=== PATIENT | female | born 1980 | race Caucasian/White ===

== ENCOUNTER 2024-02-10 14:38 | Emergency (ER) | payer OTHER ==
[2024-02-10 15:00] VITALS: BP 126/72; PULSE 77; RESP 18; TEMP 98.2; O2SAT 98
--- NOTE | 2024-02-10 15:13 | ERPHSYRPT ---
- History of Present Illness Time Seen by Provider: 02/10/24 14:42 Source: patient Exam Limitations: no limitations Patient Subjective Stated Complaint: Wound check- wound to left foot Triage Nursing Assessment: Patient ambulated back to ED and transferred self to bed. Patient A+O X3. Patient's skin pink, warm and dry. Patient complains of wound to left foot. Patient states last she got a pedicure and the software support technician knicked her skin to left outer heel causing an area. Patient states the pain is 2/10, but worse when walking. Patient has wound to left outer foot 1cm X 1.2cm. Physician History: 44 years old up-to-date with tetanus presented in the ER with complaint of left foot wound 3 to 4 days ago when she went for pedicure with some superficial skin abrasion. Reports increasing swelling and pain around the last couple of days with some redness around as well. Hurts to ambulate. No fever or chills reported. Allergies/Adverse Reactions: levofloxacin [From Levaquin] Allergy (Verified 02/10/24 14:44) Home Medications: Escitalopram Oxalate [Lexapro] 1 tab PO DAILY 02/10/24 [History] Hx Tetanus, Diphtheria Vaccination/Date Given: Yes Hx Influenza Vaccination/Date Given: No Hx Pneumococcal Vaccination/Date Given: No Immunizations Up to Date: Yes Travel Risk - International Travel Have you traveled outside of the country in past 3 weeks: No - Emerging Infectious Disease Are you exhibiting symptoms associated with any current EIDs: No - Review of Systems Constitutional: No Symptoms Ears, Nose, & Throat: No Symptoms Respiratory: No Symptoms Cardiac: No Symptoms Abdominal/Gastrointestinal: No Symptoms Musculoskeletal: Injury Skin: Skin Lesions Neurological: No Symptoms Endocrine: No Symptoms - Past Medical History Pertinent Past Medical History: No Neurological History: No Pertinent History ENT History: No Pertinent History Cardiac History: No Pertinent History Respiratory History: No Pertinent History Endocrine Medical History: No Pertinent History Musculoskeletal History: No Pertinent History GI Medical History: No Pertinent History History: No Pertinent History Psycho-Social History: Anxiety Female Reproductive Disorders: No Pertinent History - Past Surgical History Past Surgical History: Yes Neuro Surgical History: No Pertinent History Cardiac: No Pertinent History Respiratory: No Pertinent History Gastrointestinal: No Pertinent History Genitourinary: No Pertinent History Musculoskeletal: Orthopedic Surgery Female Surgical History: Hysterectomy Other Surgical History: Right hip and knee surgery - Female History Hx Last Menstrual Period: hysterectomy Hx Now: No - Social History Smoking Status: Never smoker Exposure to second hand smoke: No Drug Use: none - Nursing Vital Signs Nursing Vital Signs: Initial Vital Signs Temperature 98.2 F 02/10/24 14:45 Pulse Rate 77 02/10/24 14:45 Respiratory Rate 18 02/10/24 14:45 Blood Pressure 126/72 02/10/24 14:45 O2 Sat by Pulse Oximetry 98 02/10/24 14:45 Pain Scale Pain Intensity 2 - Physical Exam General Appearance: no apparent distress Eye Exam: PERRL/EOMI Ears, Nose, Throat Exam: normal ENT inspection Neck Exam: normal inspection, non-tender, supple, full range of motion Respiratory Exam: normal breath sounds, lungs clear Cardiovascular Exam: regular rate/rhythm, normal heart sounds Extremity Exam: inflammation, swelling (Left foot heel lateral aspect open wound with erythema around. Minimal sloughing. Warm and mildly tender to touch.), tenderness, other Skin Exam: normal color SpO2 Interpretation: normal SpO2: 98 O2 Delivery: Room Air Ordered Tests: Active Orders 24 hr Category Date Time Status CULTURE,WOUND Stat Lab 02/10/24 Ordered - Progress Progress Note: 02/10/24 15:10 44-year-old is evaluated for left heel wound after she had a pedicure done 2 days ago with surrounding erythema. Minimal sloughing. Patient is afebrile. I would start her on Bactrim and outpatient follow-up recommended. Discussed signs symptoms of worsening needing return to ER which she seems understanding. Counseled pt/family regarding: diagnosis, need for follow-up Medical Desision Making - Diagnostic Testing Diagnostic test were ordered, analyzed, and reviewed by me: Yes - Risk of complications The pt has a mod risk of morbidity or mortality based on: Need for prescription drug management - Departure Departure Disposition: Home Clinical Impression: Open wound of heel Condition: Stable Critical Care Time: No Instructions: Wound Care (DC) Additional Instructions: Follow-up with your primary care physician for reevaluation in 1 to 2 days. Keep it clean and dry. Tylenol/ibuprofen as needed. Return to ER for increasing swelling redness discharge/fever chills etc. Prescriptions: Smz/Tmp Ds Tablet [Bactrim Ds Tablet] 1 udtab PO BID #14 tablet
== END 2024-02-10 15:31 | disposition home or self-care (01) ==
LOC: ED 14:38
DX: S91.302A Unspecified open wound, left foot, initial encounter (principal); W45.8XXA Other foreign body or object entering through skin, initial encounter; Z79.899 Other long term (current) drug therapy
CPT/HCPCS: 87070; 99282